=== PATIENT | male | born 1940 | race Caucasian/White ===

== ENCOUNTER 2023-09-22 14:05 | Emergency (ER) | payer OTHER, MEDICARE ==
[2023-09-22 15:34] LABS: Hematocrit 37.7 % (38.8-50.0); Hemoglobin 12.6 g/dL (13.5-17.5); Mean Corpuscular HGB CONC 33.4 g/dL (32.0-36.0); Mean Corpuscular Hemoglobin 29.2 pg (27.0-33.0); Mean Corpuscular Volume 87.5 fl (81.2-95.1); Mean Platelet Volume 10.3 fl (7.4-10.4); Platelet Count 194 10x3/uL (150-450); RBC Distribution Width 14.4 % (11.5-14.5); Red Blood Cell (RBC) Count 4.31 10x6/uL (4.32-5.72); White Blood Cell (WBC) Count 9.1 10x3/uL (3.5-10.5)
[2023-09-22 15:36] LABS: ALT (SGPT) 13 U/L (8-55); AST (SGOT) 14 U/L (5-34); Albumin 4.2 g/dL (3.4-4.8); Alkaline Phosphatase 59 U/L (40-110); Anion Gap 13 mmol/L (10-20); BUN (Urea Nitrogen) 17 mg/dL (8.4-25.7); Bilirubin, Total 0.3 mg/dL (0.2-1.2); Calc. Creatinine Clearance 0 mL/min (70-130); Calcium 9.2 mg/dL (7.8-10.44); Carbon Dioxide 26 mmol/L (23-31); Chloride 104 mmol/L (98-107); Estimated GFR 72; Globulin 2.9 g/dL (2.4-3.5); Glucose 188 mg/dL (83-110); Potassium 4.5 mmol/L (3.5-5.1); Protein, Total 7.1 g/dL (5.8-8.1); Sodium 138 mmol/L (136-145)
[2023-09-22] MEDS ORDERED: Meclizine HCl 25 MG TAB ONE (17:07)
[2023-09-22 17:23] LABS: MDiff Complete? YES
== END 2023-09-22 19:11 | disposition home or self-care (01) ==
LOC: CSHERS 14:05
DX: H81.399 Other peripheral vertigo, unspecified ear (principal)
CPT/HCPCS: 36416; 70450; 80053; 85025; 93005